=== PATIENT | male | born 1985 | race Two or more races ===

== ENCOUNTER 2019-11-23 12:40 | Emergency (ER) | payer SELFPAY ==
[~2019-11-23] VITALS: Ht 182.9 cm; Wt 93.0 kg
[2019-11-23] MEDS ORDERED: HYDROCODONE/APAP 10/325MG TABLET ONE (13:29)
[2019-11-23] MEDS ORDERED: HYDROCODONE/APAP 10/325MG TABLET PO ONE (13:30)
[2019-11-23 14:53] VITALS: BP 115/77
== END 2019-11-23 14:54 | disposition home or self-care (01) ==
LOC: ER 12:49
DX: S91.202A Unspecified open wound of left great toe with damage to nail, initial encounter (principal); W18.09XA Striking against other object with subsequent fall, initial encounter; Y93.89 Activity, other specified; Y92.89 Other specified places as the place of occurrence of the external cause; Y99.8 Other external cause status
CPT/HCPCS: 73630-TC